=== PATIENT | male | born 1945 | race Caucasian/White ===

== ENCOUNTER → 2019-12-12 | Outpatient (CLI) | payer MEDICARE ==
--- NOTE | 2019-12-12 16:20 | XCELERA REPORT ---
[address] [facility] [address] Lower Extremity Venous Evaluation Procedure: Color flow and duplex imaging bilaterally of the veins of the lower extremities as well as the Common Femoral veins. Right Sided Venous Evaluation Normal vessel filling wall to wall, compression and augmentation as well as Colour flow down to the infrageniculate veins. Left Sided Venous Evaluation Normal vessel filling wall to wall, compression and augmentation as well as Colour flow down to the infrageniculate veins. Interpretation Summary No duplex evidence of DVT or obstruction in the bilateral lower extremities. Name: JUDY DE LA VEGA Age: 74 yrs Gender: Male : 1945 Patient Status: Outpatient Patient Location: Study Date: 12/12/2019 10:05 AM Reason For Study: EDEMA Ordering Physician: GEOVANNI VILLAGOMEZ Performed By: Klever Mcmahon : GEOVANNI VILLAGOMEZ > Rhett Pete
--- NOTE | 2019-12-12 20:06 | XCELERA REPORT ---
[address] [address] Transthoracic Echocardiogram Report Name: JUDY DE LA VEGA Age: 74 yrs Gender: Male : 1945 Patient Status: Outpatient Patient Location: Study Date: 12/12/2019 09:32 AM Height: 66 in Weight: 160 lb BSA: 1.8 m2 Reason For Study: EDEMA Ordering Physician: GEOVANNI VILLAGOMEZ Performed By: Klever Mcmahon Interpretation Summary No signif post pericardial effusion Ao root mild calcium, not dilated. AV mild calcification chay Non cor cusp., 3 cusps. No no AR. Mild mitral annular calcifucation, no MS, no MVP, mild MR with no LA enlargement. No LVH, normal LVEF 66% biplane, mild LVDD with mild basal septal hypokinesis. No LV enlargement. Mild pulmonary hypertension, RVSP 40 mmHg, no RH enlargement, no ASD. trace TR.. MMode/2D Measurements & Calculations RVDd: 2.5 cm LVIDd: 4.7 cm FS: 39.8 % Ao root diam: 3.0 cm IVSd: 0.82 cm LVIDs: 2.8 cm EDV(Teich): Ao root area: LVPWd: 0.77 cm 100.2 ml ESV(Teich): 29.6 ml7.3 cm2 LA dimension: 3.8 cm EF(Teich): 70.4 % LVLd ap4: 8.7 cm SV(MOD-sp4): EDV(MOD-sp4): 48.0 ml 73.0 ml LVLs ap4: 7.6 cm ESV(MOD-sp4): 25.0 ml EF(MOD-sp4): 65.8 % Doppler Measurements & Calculations MV E max gabrielle: MV P1/2t max gabrielle: Ao V2 max: LV V1 max P.9 cm/sec 79.6 cm/sec 128.4 cm/sec 4.5 mmHg MV A max gabrielle: MV P1/2t: 78.8 msec Ao max PG: LV V1 max: 58.3 cm/sec 6.6 mmHg 105.9 cm/sec MV E/A: 1.2 MVA(P1/2t): 2.8 cm2 LV dP/dt: MV dec slope: 1515 mmHg/s 295.9 cm/sec2 MV dec time: 0.30 sec PA V2 max: PI end-d gabrielle: TR max gabrielle: MV P1/2t-pr_phl: 90.8 cm/sec 133.8 cm/sec 308.9 cm/sec 78.8 msec PA max PG: TR max P.3 mmHg 38.2 mmHg I WMSI = 1.13 % Normal = 88 Segments Size X - Cannot 1 - Normal 2 - 3 - Akinetic4 - 1-2 small Interpret Hypokinetic Dyskinetic 3-5 moderate 5 - 6-14 large Aneurysmal 15-16 diffuse : GEOVANNI VILLAGOMEZ Andre
== END ==
LOC: SP 08:57
PROVIDERS: ATTEND Physician Assistant
DX: R60.0 Localized edema (principal)
CPT/HCPCS: 93306; 93970

== ENCOUNTER → 2020-06-15 | Outpatient (CLI) | payer MEDICARE ==
--- NOTE | 2020-06-15 18:20 | RADIOLOGY REPORT (SQ) ---
EXAM DESCRIPTION: CHEST PA/LATERAL IMAGES COMPLETED DATE/TIME: 06/15/2020 11:00 am REASON FOR STUDY: EMPHYSEMA, UNSPECIFIED J43.9 EMPHYSEMA, UNSPECIFIED COMPARISON: None. NUMBER OF VIEWS: Two view. TECHNIQUE: Frontal and lateral radiographic views of the chest acquired. LIMITATIONS: None. FINDINGS: LUNGS AND PLEURA: No opacities, masses or pneumothorax. No pleural effusion. Attenuated bl ood vessels and flattened teo-diaphragms. MEDIASTINUM AND HILAR STRUCTURES: No masses. No contour abnormalities. HEART AND VASCULAR STRUCTURES: Heart normal in size and contour. No evidence for failure. BONES: No acute findings. HARDWARE: None in the chest. OTHER: No other significant finding. IMPRESSION: COPD. NO ACUTE RADIOGRAPHIC FINDING IN THE CHEST. TECHNICAL DOCUMENTATION: JOB ID: [id number] 2010 [employer]- All Rights Reserved Reading location - IP/workstation name: [email or web address]
== END ==
LOC: OD 10:14
PROVIDERS: ATTEND Internal Medicine Pulmonary Disease
DX: J43.9 Emphysema, unspecified (principal)
CPT/HCPCS: 71046